=== PATIENT | female | born 1985 | race Caucasian/White ===

== ENCOUNTER 2022-05-05 08:52 | Inpatient (IN) ==
[2022-05-05 09:01] VITALS: BMI 43.9
[2022-05-05] MEDS ORDERED: LR 1,000 ML IV 1,000 ML IV ONE ×2 (09:26→10:23)
[2022-05-05] MEDS ORDERED: NS 100 ML IV 100 ML ONE (09:26)
[2022-05-05] MEDS ORDERED: ZOFRAN INJ 4 MG VIAL ONE (09:26)
[2022-05-05] MEDS ORDERED: ANCEF VIAL 1 GRAM ONE (09:26)
[2022-05-05] MEDS ORDERED: D5 1/2 NS 1,000 mL + PITOCIN 20 UNITS/L IV 20 UNITS/1,000 ML BAG IV ONE (09:27)
[2022-05-05] MEDS ORDERED: PEPCID 20 MG VIAL ONE (09:27)
[2022-05-05] MEDS ORDERED: REGLAN INJ 10 MG VIAL ONE (09:28)
[2022-05-05 09:30] LABS: APPEARANCE,URINE CLEAR (CLEAR); BILIRUBIN,URINE NEGATIVE (NEGATIVE); BLOOD/HEMOGLOBIN,URINE 4+ (NEGATIVE); COLOR,URINE YELLOW (YELLOW); GLUCOSE, URINE NEGATIVE (NEGATIVE); KETONES,URINE NEGATIVE (NEGATIVE); LEUKOCYTE ESTERASE ,URINE NEGATIVE (NEGATIVE); NITRITES,URINE NEGATIVE (NEGATIVE); PROTEIN,URINE NEGATIVE (NEGATIVE); UROBILINOGEN,URINE NORMAL (NORMAL)
[2022-05-05 09:36] LABS: AMNISURE ROM TEST THERE IS A RUPTURE (NO RUPTURE)
[2022-05-05 09:42] LABS: BACTERIA,URINE NEGATIVE /HPF (NEGATIVE); SQUAMOUS EPITHELIAL CELL,UR FEW /HPF (NEGATIVE)
[2022-05-05 09:56] LABS: BASOPHILS % (AUTO) 0.5 % (0.2-1.0); EOSINOPHILS % (AUTO) 0.7 % (0.9-2.9); HEMATOCRIT 36.2 % (36.0-47.0); HEMOGLOBIN 12.4 g/dL (12.0-16.0); LYMPHOCYTES # (AUTO) 1.3 X10^3/uL (1.3-2.9); LYMPHOCYTES % (AUTO) 18.9 % (21.0-51.0); MEAN CORPUSCULAR HEMOGLOBIN 28.3 pg (27.0-34.0); MEAN CORPUSCULAR HGB CONC 34.1 g/dL (33.0-35.0); MEAN PLATELET VOLUME 9.8 fL (7.4-11.0); MONOCYTES # (AUTO) 0.5 x10^3/uL (0.3-0.8); MONOCYTES % (AUTO) 7.8 % (0.0-13.0); NEUTROPHILS # (AUTO) 4.9 x10^3/uL (2.2-4.8); NEUTROPHILS % (AUTO) 72.1 % (42.0-75.0); RED BLOOD COUNT 4.37 X10^6/uL (3.5-5.4); RED CELL DISTRIBUTION WIDTH 21.4 % (11.6-16.5); WHITE BLOOD COUNT 6.8 X10^3/uL (3.6-10.0)
[2022-05-05] MEDS ORDERED: EPHEDRINE SULFATE INJ ONE (10:00)
[2022-05-05] MEDS ORDERED: OFIRMEV IV 1000 MG VIAL 1,000 MG/100 ML VIAL IV ONE (10:00)
[2022-05-05] MEDS ORDERED: TORADOL 30 MG VIAL ONE (10:00)
[2022-05-05] MEDS ORDERED: MARCAINE SPINAL ONE (10:00)
[2022-05-05] MEDS ORDERED: DECADRON INJ ONE (10:00)
[2022-05-05] MEDS ORDERED: DILAUDID INJ ONE (10:00)
[2022-05-05 10:15] LABS: ALANINE AMINOTRANSFERASE 16 Units/L (12-78); ALBUMIN 2.5 g/dL (3.4-5.0); ALKALINE PHOSPHATASE 108 Units/L (46-116); ASPARTATE AMINO TRANSFERASE 20 Units/L (15-37); BLOOD UREA NITROGEN 10 mg/dL (7-18); CALCIUM 8.2 mg/dL (8.5-10.1); CARBON DIOXIDE 24.4 mmol/L (21-32); CHLORIDE 100 mmol/L (98-107); COR CA(FOR HYPOALB) 9.4 mg/dL (8.5-10.1); CREATININE 0.63 mg/dL (0.55-1.02); SODIUM 134 mmol/L (136-145); TOTAL PROTEIN 7.1 g/dL (6.4-8.2); eGFR NON BLACK RACES > 60 (>60)
[2022-05-05 10:31] LABS: ANISOCYTOSIS 1+; OVALOCYTES SLIGHT; PLATELET MORPHOLOGY COMMENT NORMAL (NORMAL)
[2022-05-05] MEDS ORDERED: PITOCIN ONE (11:00)
[2022-05-05] MEDS ORDERED: XYLOCAINE 2 % (PLAIN) ONE (11:11)
[2022-05-05] MEDS ORDERED: VERSED ONE (11:16)
[2022-05-05] MEDS ORDERED: PERCOCET TAB 5/325 MG PO PRN ×2 (11:24→12:21)
[2022-05-05] MEDS ORDERED: NARCAN INJ IVP PRN (11:24)
[2022-05-05] MEDS ORDERED: BENADRYL INJ 50 MG VIAL IVP PRN ×2 (11:24→11:25)
[2022-05-05] MEDS ORDERED: PHENERGAN INJ 25 MG IM PRN ×2 (11:25→12:21)
[2022-05-05] MEDS ORDERED: DILAUDID INJ IVP PRN (11:25)
[2022-05-05] MEDS ORDERED: BARHEMSYS INJ IVP PRN (11:25)
[2022-05-05] MEDS ORDERED: ZOFRAN INJ 4 MG VIAL IVP PRN (12:21)
[2022-05-05] MEDS ORDERED: MILK OF MAGNESIA PO PRN (12:21)
[2022-05-05] MEDS ORDERED: MYLICON TAB 80 MG CHEW PO PRN (12:21)
[2022-05-05] MEDS ORDERED: D5 1/2 NS 1,000 ML 1,000 ML with PITOCIN 20 UNITS IV SCH ×2 (12:21)
[2022-05-05] MEDS: TORADOL 30 MG VIAL IVP SCH ×2 (13:57→20:17)
[2022-05-05] MEDS: ZOVIRAX PO SCH ×2 (15:57→21:51)
[2022-05-05] MEDS ORDERED: AMBIEN PO PRN (21:00)
[2022-05-05] MEDS ORDERED: COLACE CAP 100 MG PO SCH (21:00)
[2022-05-06 05:25] LABS: HEMATOCRIT 33.6 % (36.0-47.0); HEMOGLOBIN 11.5 g/dL (12.0-16.0)
[2022-05-06] MEDS: TORADOL 30 MG VIAL IVP SCH ×2 (06:41→06:44)
[2022-05-06] MEDS: ZOVIRAX PO SCH ×2 (06:44→13:35)
--- NOTE | 2022-05-06 08:19 | NOTE.PROBC ---
Progress Note OB-C/S Subjective Data Subjective: No complaints, decreased lochia. Tolerating regular diet. No N/V. Ambulating well. Dixon draining well. Pain under good control with toradol. Objective Data Result Diagrams: 05/06/22 04:55 05/05/22 09:40 Objective Data: CV= RRR no MRG Lungs=CTA Bilaterally Abd=(+) BS, soft, ND, appropriately tender near incision. Bandage removed. Incision clean/dry/intact, no erythema, no bleeding, no discharge. Dermabond/Stitches intact. Fundus firm/NT/ at 3 cm below umbilicus. Ext= No edema, NT, No Cords. Graduated Compression Stockings/Sequential Compression Devices Bilaterally. Assessment Assessment: pt is ready to go home as soon as she voids. Plan (1) deliv NOS-unsp: Plan: The pt is doing well and ready for d/c as soon as she voids.
[2022-05-06] MEDS ORDERED: PRENATAL PLUS PO SCH (09:00)
[2022-05-06] MEDS ORDERED: TORADOL 15 MG VIAL IVP PRN (11:00)
[2022-05-06 15:10] VITALS: BP 120/64
[2022-05-06] MEDS ORDERED: FLUZONE II4 or AFLURIA II4 IM ONE (16:03)
== END 2022-05-06 18:50 | disposition home or self-care (01) | DRG 784 ==
LOC: ER 08:52 → LD 09:25 → MED/SURG 12:20
PROVIDERS: ADMIT Obstetrics & Gynecology; ATTEND Obstetrics & Gynecology
DX: Z30.2 Encounter for sterilization; O98.513 Other viral diseases complicating pregnancy, third trimester; Z37.0 Single live birth; Z3A.38 38 weeks gestation of pregnancy; B00.89 Other herpesviral infection; O13.3 Gestational [pregnancy-induced] hypertension without significant proteinuria, third trimester